=== PATIENT | male | born 1990 | race Caucasian/White ===

== ENCOUNTER 2017-03-22 06:01 | Emergency (ER) | payer BC ==
[~2017-03-22] VITALS: Ht 177.8 cm; Wt 67.6 kg
[~2017-03-22 06:01] MED LIST: CATAPRES0.1 MG PO
[2017-03-22 08:00] VITALS: BP 116/74
[2017-03-22] MEDS ORDERED: ULTRAM50 MG PO (08:45)
[2017-03-22] MEDS ORDERED: FLEXERIL10 MG PO (08:45)
== END 2017-03-22 10:34 | disposition home or self-care (01) ==
LOC: EME 06:01
DX: S16.1XXA Strain of muscle, fascia and tendon at neck level, initial encounter (principal); V86.55XA Driver of 3- or 4- wheeled all-terrain vehicle (ATV) injured in nontraffic accident, initial encounter; F17.200 Nicotine dependence, unspecified, uncomplicated
CPT/HCPCS: 72040; 99281; 99284